=== PATIENT | male | born 1945 | race Caucasian/White ===

== ENCOUNTER → 2024-03-24 09:58 | Outpatient (REF) | payer OTHER, SELFPAY ==
[2024-03-24 11:17] LABS: Hematocrit 40.8 % (39.0-52.0); Mean Corp Hgb Conc. 34.3 g/dL (33.0-37.0); Mean Corpuscular Hgb 30.6 pg (27.0-31.0); Mean Corpuscular Volume 89.3 fL (80.0-94.0); Mean Platelet Volume 10.7 fL (7.4-10.4); Platelet Count 215 10^3/uL (130-400); Red Blood Cell Count 4.57 10^6/uL (4.70-6.10); White Blood Cell Count 7.5 10^3/uL (4.8-10.8)
[2024-03-24 11:47] LABS: ALT (SGPT) 18 U/L (0-50); AST (SGOT) 26 U/L (17-59); Albumin 4.1 g/dl (3.5-5.0); Alkaline Phosphatase 75 U/L (38-126); Blood Urea Nitrogen 21 mg/dl (9-20); Calcium 9.9 mg/dl (8.4-10.2); Carbon Dioxide 29 mmol/L (22-30); Chloride 104 mmol/L (98-107); Glucose 113 mg/dl (70-99); HDL Cholesterol 49 mg/dl; LDL Cholesterol, Calculated 75 mg/dl; Potassium 4.3 mmol/L (3.5-5.1); Sodium 139 mmol/L (135-145); Total Bilirubin 1.3 mg/dl (0.2-1.3); Total Cholesterol 141 mg/dl (50-199); Total Protein 7.3 g/dl (6.3-8.2); Triglyceride 87 mg/dl (10-149); Very Low Density Lipoprotein 17 mg/dl (0-30); eGFR > 60.00
[2024-03-24 11:54] LABS: % Basophils 0.3 % (0-2); % Immature Granulocytes 0.3 % (0-0.5); % Lymphocytes 50.6 % (20.5-51.1); % Monocytes 4.9 % (1.7-9.3); % Neutrophils 43.9 % (42.2-75.2); Absolute Lymphocytes 3.8 10^3/uL (1.2-3.4); Absolute Monocytes 0.4 10^3/uL (0.1-0.6); Absolute Neutrophils 3.3 10^3/uL (1.4-6.5); Nucleated Red Blood Cells % 0 % (-)
[2024-03-24 12:18] LABS: TSH 2.17 uIU/ml (0.47-4.68)
[2024-03-24 13:06] LABS: Glycohemoglobin (HgbA1c) 6.1 % (4.0-5.6)
[2024-03-26 13:59] LABS: PSA Total <0.1 ng/mL (0.0-4.0)
== END ==
LOC: REG 09:58
PROVIDERS: ATTENDING PHYSICIAN Internal Medicine
DX: R73.03 Prediabetes (principal); E78.5 Hyperlipidemia, unspecified; R53.83 Other fatigue; C61 Malignant neoplasm of prostate
CPT/HCPCS: 36415; 80053; 80061; 83036; 84153; 84154; 84443; 85025

== ENCOUNTER 2024-05-19 23:52 | Observation (INO) | payer OTHER, SELFPAY ==
[2024-05-19] VITALS (17 sets, daily range): BP systolic 58–157; BP diastolic 46–108; BMI 23.5
[2024-05-19] MEDS: TRANEXAMIC ACID 1000 MG INH (19:44)
--- NOTE | 2024-05-19 20:02 | ED.GENMED ---
History of Present Illness
General
Chief Complaint: Oral/Mouth Problem
Time Seen by Provider: 05/19/24 18:41
History of Present Illness
History of Present Illness:
79-year-old male with history of A-fib on Eliquis presents to the emergency department for evaluation of oral bleeding, underwent a dental implant procedure at [facility] on May 15, restarted his Eliquis 2 days later. Began
spontaneously bleeding earlier today. Last dose of Eliquis was this morning.
Past History
Past History
ED Past Medical History: Arrthythmia (Atrial fibrillation), Cancer (Prostate cancer), NIDDM and Other (BPH, renal failure)
ED Past Surgical History: Urological
Social History
Tobacco: Non-smoker
Personal:
Living: with family
Review of Systems
Review of Systems
Allergies reviewed?: Yes
All Other Systems: ROS reviewed and negative except as documented in HPI and ROS
Phy Exam
Physical Exam
Physical Exam:
GEN: Well appearing, NAD, WDWN
HEENT: Oral mucosa moist, no scleral icterus. Significant active bleeding from the left upper lingual gingiva, and extensive friable tissue with copious bleeding
Cardiac: Regular rate
Lung: No respiratory distress, no tachypnea
MSK: No gross deformity or injuries
Skin: Good color, no pallor or jaundice, no rashes
Neuro: AO x3, moves all extremities freely
Psych: Calm, cooperative
Course
Orders/Labs/Results
Orders:
Orders
05/19/24 18:55
Tranexamic Acid 1,000 mg INH NOW STA
05/19/24 20:44
Tranexamic Acid 1000 mg/100 ml [Tranexamic Acid] 1,000 mg in 100 ml IV ONCE
05/19/24 20:50
Basic Metabolic Panel Urgent
Complete Blood Count/With Diff Urgent
Abnormal Lab Results
05/19/24
20:50
RBC 3.91 L 10^6/uL
(4.70-6.10)
Hgb 11.9 L g/dL
(13.0-18.0)
Hct 34.5 L %
(39.0-52.0)
Absolute Lymphs (auto) 3.8 H 10^3/uL
(1.2-3.4)
BUN 36 H mg/dl
(9-20)
Glucose 153 H mg/dl
(70-99)
05/19/24 20:50
05/19/24 20:50
Vital Signs
Initial and Last Documented VS:
Initial Vital Signs
Temp
97.7 F
05/19/24 18:38
Last Documented Vital Signs
Temp Pulse Resp BP Pulse Ox
97.7 F 55 18 120/59 96
05/19/24 18:38 05/19/24 21:40 05/19/24 20:07 05/19/24 21:40 05/19/24 21:40
*Critical Care Note
Total Time (30-74mins, 75-104mins- exclusive of procedures): Not Applicable
Update Note
Update Note:
2119: Pt with marked vagal episode resulting in transient systolic BP <40. 1L NS given, myself and RN at bedside during event, pt placed in Trendelenburg. No further gingival bleeding. Gradually improved, no LOC.
2148: Case discussed with pt's dentist Dr Byrd at [place]. He will arrange for outpatient f/u tomorrow or Friday. If further hemorrhaging noted, pt can be transferred to [place] for more urgent eval. CEll # [phone]
At this time, no further bleeding is noted. As pt is anticoagulated and given the profound near syncope/vagal episode with severe hypotension, will admit for observation.
ED Attending Note
-
Portions of this chart may have been created with voice recognition software.� Occasional wrong word or��sound alike� substitutions may have occurred due to the inherent limitations of voice recognition software.
Discharge Plan
Departure
Patient Disposition: Admit
Date of Disposition: 05/19/24
Time of Disposition: 22:02
Admit to: Med/Surg
Presentation/result/management discussed w/ accepting MD/DO: Hospitalist
Discharge Problem:
Hemorrhagic complications of dental implant placement
Prescriptions:
No Action
saw palmetto-zinc picolinate 1 EACH capsule
1 cap PO DAILY
polyethylene glycol 3350 17 GRAMS powder in packet
34 grams PO BID PRN (Reason: constipation) 0RF
aspirin 81 MG tablet,delayed release (DR/EC)
81 mg PO DAILY 0RF
tamsulosin 0.4 MG capsule
0.4 mg PO DAILY Qty: 30 0RF
docusate sodium 100 MG capsule
100 mg PO BID 0RF
bisacodyl 5 MG tablet,delayed release (DR/EC)
10 mg PO DAILY Qty: 30 0RF
metoprolol tartrate 25 MG tablet
25 mg PO BID Qty: 60 0RF
ferrous sulfate [FeroSul] 325 MG tablet
325 mg PO DAILY Qty: 30 0RF
Referrals:
Tor Palmer MD [Family Provider] -
Interventions
Interventions:
*Risk Screen - Suicide Last Done: 05/19/24 18:38
*General Assessment Last Done: 05/19/24 18:38
*Neglect/Abuse Screening Last Done: 05/19/24 18:38
*ED COVID-19 Vaccine History Last Done: 05/19/24 20:07
Discharge Date and Time
Print Language: BANGLADESHI
[2024-05-19] MEDS: TRANEXAMIC ACID 100 IV (20:56)
[2024-05-19 21:01] LABS: % Basophils 0.2 % (0-2); % Immature Granulocytes 0.4 % (0-0.5); % Lymphocytes 36.5 % (20.5-51.1); % Monocytes 4.6 % (1.7-9.3); % Neutrophils 58.3 % (42.2-75.2); Absolute Lymphocytes 3.8 10^3/uL (1.2-3.4); Absolute Monocytes 0.5 10^3/uL (0.1-0.6); Absolute Neutrophils 6.1 10^3/uL (1.4-6.5); Hematocrit 34.5 % (39.0-52.0); Hemoglobin 11.9 g/dL (13.0-18.0); Mean Corp Hgb Conc. 34.5 g/dL (33.0-37.0); Mean Corpuscular Hgb 30.4 pg (27.0-31.0); Mean Corpuscular Volume 88.2 fL (80.0-94.0); Mean Platelet Volume 9.8 fL (7.4-10.4); Nucleated Red Blood Cells % 0 % (-); Platelet Count 222 10^3/uL (130-400); Red Blood Cell Count 3.91 10^6/uL (4.70-6.10); Red Cell Dist. Width 13.7 % (11.5-14.5); White Blood Cell Count 10.4 10^3/uL (4.8-10.8)
[2024-05-19 21:14] LABS: Blood Urea Nitrogen 36 mg/dl (9-20); Calcium 9.1 mg/dl (8.4-10.2); Carbon Dioxide 27 mmol/L (22-30); Chloride 105 mmol/L (98-107); Estimated Creatinine Clearance 75 ml/min; Glucose 153 mg/dl (70-99); Potassium 4.3 mmol/L (3.5-5.1); Sodium 141 mmol/L (135-145); eGFR > 60.00
--- NOTE | 2024-05-19 22:41 | PHANOTE ---
med rec tech(05/19/24)-Unable to interview patient at this time due to oral bleeding. Confirmed Eliquis and Metoprolol Succinate through pharmacy and [facility] records. Unable to confirm OTC meds.
--- NOTE | 2024-05-19 23:16 | HPS.HSE ---
Family Physician
-
Family Physician: Tor Palmer
Chief Complaint
-
Oral bleeding
History of Present Illness
This is a 79-year-old male with a past medical history of proximal atrial fibrillation on anticoagulation with Eliquis who presents to the emergency department with episode of copious amounts of oral bleeding several days after a dental procedure.
Patient reported that he had a dental procedure last week approximately 6 days ago. Prior to the procedure he stopped taking the Eliquis for 2 days. Immediately after the procedure he had some bleed which resolved. He did not take
Eliquis for 1 day. He then started taking the Eliquis. Patient reported approximately 2 days after taking the Eliquis is started bleeding from his mouth.
Last dose of Eliquis was this morning.
On initial arrival in the emergency department he was afebrile blood pressure 120/60 with a pulse of 55 and sat 96% on room air. He had a hemoglobin of 11.9 with a platelet count of 272. BUN was slightly elevated at 36 but the rest of his labs
were within normal limits.
While in ED had a few events.
2119: Pt with marked vagal episode resulting in transient systolic BP <40. 1L NS given, pt placed in Trendelenburg. No further gingival bleeding. Gradually improved, no LOC.
He underwent multiple rounds of attempted hemostasis. He was given tranexamic acid and local epinephrine. On a repeat bleed the patient had local cauterization.
2148: Case discussed with pt's dentist Dr Byrd at [place]. He will arrange for outpatient f/u tomorrow or Friday. If further hemorrhaging noted, pt can be transferred to [place] for more urgent eval. CEll # [phone]
At this time, no further bleeding is noted. As pt is anticoagulated and given the profound near syncope/vagal episode with severe hypotension, will admit for observation.
Medical History
Past Medical History
Past Medical History: Reports Arrhythmia (Atrial Fibrillation)
Past Surgical History: Reports Urological
Social History
Tobacco: Non-smoker
Alcohol: Occasional
Drug: None
Personal:
Living: With Family
Employment: Retired
Family History
Family History: Not pertinent
Allergies / Home Medications
Allergies reflects when Allergies were last updated in [employer].
Home Medications with original date entered in [employer]
Allergy/Medication List:
Allergies
Allergy/AdvReac Type Severity Reaction Status Date / Time
Penicillins Allergy Rash Verified 05/19/24 18:44
Tetanus Vaccines and Toxoid Allergy Unknown Verified 05/19/24 18:44
Home Medications
saw palmetto 450 mg-zinc picolinate 15 mg capsule 1 cap PO DAILY 01/12/16
aspirin 81 mg tablet,delayed release 81 mg PO DAILY 01/16/16
bisacodyl 5 mg tablet,delayed release 10 mg (2 x 5 mg) PO DAILY ##30 01/16/16
docusate sodium 100 mg capsule 100 mg PO BID 01/16/16
ferrous sulfate 325 mg (65 mg iron) tablet (FeroSul) 325 mg PO DAILY #30 tabs 01/16/16
polyethylene glycol 3350 17 gram oral powder packet 34 grams PO BID PRN constipation 01/16/16
apixaban 5 mg tablet (Eliquis) 5 mg PO BID 05/19/24
metoprolol succinate 25 mg tablet,extended release 24 hr 25 mg PO DAILY 05/19/24
Review of Systems
-
History Source: Patient
Constitutional: Reports No Symptoms
EENT: Reports No Symptoms
Respiratory: Reports No Symptoms
Cardiac: Reports No Symptoms
Abdomen/GI: Reports No Symptoms
: Reports No Symptoms
Musculoskeletal: Reports No Symptoms
Skin: Reports No Symptoms
Neurological: Reports No Symptoms
Endocrine: Reports No Symptoms
Hematologic/Lymphatic: Reports No Symptoms
Psych: Reports No Symptoms
Physical Exam
Vital Signs
Vital Signs
Temp Pulse Resp BP Pulse Ox
97.7 F 55 18 120/59 96
05/19/24 18:38 05/19/24 21:40 05/19/24 20:07 05/19/24 21:40 05/19/24 21:40
Physical Exam
General: No Apparent Distress
HEENT: NormoCephalic, Anicteric, Moist mucous membranes and Other (Extensive dental work on the left upper molar area. Hemorrhaging from the site. )
Respiratory: Clear
Cardiac: S1/S2 and Regular Rhythm
Breast: Deferred by me
GI: Soft, Non Tender, Non Distended and Normal Bowel Sounds
Rectal: Deferred by Provider
Genito-urinary: Deferred by me
Musculoskeletal: No Clubbing, No Cyanosis and No Edema
Skin: Warm
Neuro: AO x 3
Hematologic/Lymphatic: No Lymphadenopathy
Psych: Calm
Laboratory Results
-
05/19/24 20:50
05/19/24 20:50
Data Reviewed
-
Lab Data: Labs Reviewed by me
Old Records: Reviewed
Impression/Plan
-
IMPRESSION:
Patient with history of atrial fibrillation who had a complication of a dental procedure following restarting of his anticoagulation. Patient had a procedure approximately 5 days ago and is now bleeding after initiating Eliquis for his atrial
fibrillation. Hemostasis achieved in the emergency department. However patient had a vagal episode with bradycardia and hypotension during attempted hemostasis. His hemoglobin is normal. Of renal function is normal. Patient is currently
hemodynamically stable afebrile and in no acute distress. Hemostasis finally achieved after cauterization in addition to giving additional topical tranexamic acid.
PLAN:
1. Oral bleeding -secondary to anticoagulation following complex dental procedure. Stable. Had a vagal episode in the emergency department and referred for observation.
- observation on telemetry
- NPO including meds for now
- holding eliquis and aspirin, no indication for PCC since non-life threatening bleed and last eliquis was over 12 hours ago. Held off on Type and Cross.
- monitor rate on telemetry
- Case discussed with pt's dentist Dr Byrd at [place]. He will arrange for outpatient f/u tomorrow or Friday. If further hemorrhaging, pt can be transferred to [place] for more urgent eval. CEll # [phone]
At this time, no further bleeding is noted. As pt is anticoagulated and given the profound near syncope/vagal episode with severe hypotension, will admit for observation.
SCD
Full Code
[2024-05-20] VITALS: BP 101/64
[2024-05-20 00:30] VITALS: BP 99/71
[2024-05-20 01:07] VITALS: BP 137/65; BMI 22.3
[2024-05-20 01:22] VITALS: BMI 22.3
--- NOTE | 2024-05-20 02:00 | PTCARENOTE ---
Addendum entered by Shauna Gonzalez RN 05/20/24 05:40:
COIL WINDER HAND, Georgie, notified.
Original Note:
Pt received from Ed at 0100. Pt seemed slightly agitated with transporter, complained of slight lightheadedness, AAOX3, VVS, and able to pivot into bed. Pt receptive to room and call garza. Pt informed of importance to use call garza before getting up
and pt relayed understanding. Pt bed in lowest position and call garza within reach. RN got pt ordered fluids ready, however, pt states they are nervous and doesn't want to receive fluids as he doesn't feel safe taking it. Pt reassured of his safety
and educated on importance for scheduled fluids and pt agreed to receive 1 hour of fluids. 1 hour of fluids given (66mls) and pt was disconnected from fluids (D5/0.45%NaCl). Will continue with current plan of care.
[2024-05-20] MEDS: D5/0.45%NACL 1000 IV (02:03)
[2024-05-20 03:54] VITALS: BP 132/70
[2024-05-20 07:30] VITALS: BP 132/70
[2024-05-20 09:02] LABS: Hematocrit 32.7 % (39.0-52.0); Hemoglobin 11.7 g/dL (13.0-18.0); Mean Corp Hgb Conc. 35.8 g/dL (33.0-37.0); Mean Corpuscular Hgb 32.8 pg (27.0-31.0); Mean Corpuscular Volume 91.6 fL (80.0-94.0); Mean Platelet Volume 10.1 fL (7.4-10.4); Platelet Count 246 10^3/uL (130-400); Red Blood Cell Count 3.57 10^6/uL (4.70-6.10); Red Cell Dist. Width 13.7 % (11.5-14.5); White Blood Cell Count 11.3 10^3/uL (4.8-10.8)
[2024-05-20 09:07] LABS: INR 1.31; PT 16.3 Sec (11.4-14.6)
--- NOTE | 2024-05-20 10:07 | W.PN.HOSP.TC ---
Today's Communication/Plan
-
dc home
Assessment / Plan
Assessment / Plan
NAD, resting comfortably in bed
Scleral anicteric
No further bleeding in the mouth
Moist mucous membranes
No JVD
CTA bilateral
Normal S1-S2 no murmurs
Soft nontender nondistended bowel sounds active
No peripheral pitting edema
Moves extremities spontaneously
AAOx3
Oral bleeding resolved
hgb stable
hemodynamic stable
he would like to go home
he needs to follow up with outpatient dentist Dr. Byrd
hold eliquis
discuss resuming with community facilitator and dentist but ideally should see dentist first
paroxysmal atrial fibrilaltion, in sinus, on bb. hold ac
brenana contineu ferrous sulfate
take vee jones, have told him to hold taking this as there is an assoiciated bleeding risk.
dc home
Anticipated Discharge: Today
Subjective/Interval History
-
Date of Service: May 20, 2024
seen and examined
no further mouth bleeding
no acute complaints
no dizziness, chest pain, sob
states he understands that he should hold off on taking his eliquis until he sees his dentist
he understands that he needs to see Dr Byrd at [place] today or Friday.
Objective Data
-
Labs:
Laboratory Results
05/20/24
08:04
WBC 11.3 H
Hgb 11.7 L
Hct 32.7 L
Plt Count 246
PT 16.3 H
INR 1.31
Vital Signs:
Vital Signs
Temp Pulse Resp BP Pulse Ox
99.0 F 68 18 132/70 96
05/20/24 07:30 05/20/24 07:30 05/20/24 07:30 05/20/24 07:30 05/20/24 07:30
I&O
05/19/24 05/20/24 05/21/24
06:59 06:59 06:59
Output Total 300 / 300
Balance -300 / -300
--- NOTE | 2024-05-20 10:30 | W.DCSUMMARY ---
Discharge Summary
Discharge Data
Date of Admission: 05/19/24
Date of Discharge: 05/20/24
-
Pending Results: No
Hospital Course
Presented with oral bleeding that occured after dental procedure at [place] approximately 5days prior to presenting to [facility]. Bleeding was stopped with epinephrine, tranexamic acid and eventually required cautery. Blood counts on
discharge stable at 11.7. No indication for blood transfusion. Blood pressure stable as well.
[facility] was called in the ER and recommended outpatient follow up today (05/20) or Friday (05/21) with Dr. Byrd. If hemorrhaging then he should be transferred to [place] for more urgent eval and to call [phone].
Continue oral care recommendations per Dental medicine recommendation that were provided after surgical intervention 5days./
Discharge Plan
-
Patient Disposition: Home (Routine Discharge)
Discharge Diagnosis/Procedures: oral bleeding
Diet: As tolerated
Activity: As tolerated
Driving Restrictions: As prior to admission
Activity Restrictions/Additional Instructions:
Presented with oral bleeding that occured after dental procedure at [place] approximately 5days prior to presenting to [facility]. Bleeding was stopped with epinephrine, tranexamic acid and eventually required cautery. Blood counts on
discharge stable at 11.7. No indication for blood transfusion. Blood pressure stable as well.
[facility] was called in the ER and recommended outpatient follow up today (05/20) or Friday (05/21) with Dr. Byrd. If hemorrhaging then he should be transferred to [place] for more urgent eval and to call [phone].
Continue oral care recommendations per Dental medicine recommendation that were provided after surgical intervention 5days./
Referrals:
Tor Palmer MD [Family Provider] -
Additional Discharge Medication Instructions: Hold take Aspirin and Eliquis
-Resume per Dental medicine and Cardiology The resume date provided, do not follow this, and follow what your roving marker and dental medicine provider recommend.
Hold taking saw palmetto until bleeding risk/affects on platelets have been discussed with outpatient cardiology
Prescriptions:
Continued
polyethylene glycol 3350 17 GRAMS powder in packet
34 grams PO BID PRN (Reason: constipation) 0RF
docusate sodium 100 MG capsule
100 mg PO BID 0RF
bisacodyl 5 MG tablet,delayed release (DR/EC)
10 mg PO DAILY Qty: 30 0RF
ferrous sulfate [FeroSul] 325 MG tablet
325 mg PO DAILY Qty: 30 0RF
metoprolol succinate 25 mg Tablet Extended Release 24 Hr
25 mg PO DAILY
Held
saw palmetto-zinc picolinate 1 EACH capsule
1 cap PO DAILY
Hold Instructions: Resume on 06/14/24. Saw [place] can affect platelets. Would hold take this indefinitely as this can increase bleeding risk
aspirin 81 MG tablet,delayed release (DR/EC)
81 mg PO DAILY 0RF
Hold Instructions: Resume on 05/24/24. Resume per Dental medicine and Cardiology The resume date provided, do not follow this, and follow what your roving marker and dental medicine provider recommend.
Eliquis 5 mg Tablet
5 mg PO BID
Hold Instructions: Resume on 05/24/24. Resume per Dental medicine and cardiology recommendations The resume date provided, do not follow this, and follow what your roving marker and dental medicine provider recommend.
Discharge Orders:
Discharge Patient (As Directed); Ordered 05/20/24
Ordered By: Sim Joel
Discharge Date and Time
Print Language: TUVALUAN
--- NOTE | 2024-05-20 10:58 | CM ---
CM reviewed chart, patient for discharge today. Patient seen bedside, requesting to speak with Hospitalist, did not want to complete assessment with CM until speaking with Hospitalist, TT sent to Doctor. CM returned, patient agreeable to assessment
questions. Per patient, resides with his in a multiple story home, nine steps to enter, no DME, VN, or SNF history. Patient confirms PCP Tor Palmer, pharmacy [facility] in [place], confirms prescription coverage. Patient denies
insecurities at home. CM reviewed ZAMORA with patient, refused to sign, provided with copy, placed in patients chart. Patient reports the Doctor will be providing transportation home. Patient reports his does not drive. CM relayed to nurse. CM
placed call to patients , Jass, Jass will see if neighbor can provide transportation home for patient, will call CM back. CM will continue to follow for all discharge planning needs.
Plan; home no needs, awaiting confirmation of transportation.
== END 2024-05-20 12:31 | disposition home or self-care (01) ==
LOC: 4 WEST ACU 23:52
PROVIDERS: Physician Assistant; ADMITTING PHYSICIAN Internal Medicine; ATTENDING PHYSICIAN Hospitalist; EMERGENCY PHYSICIAN Emergency Medicine; FAMILY PHYSICIAN Internal Medicine
DX: T88.8XXA Other specified complications of surgical and medical care, not elsewhere classified, initial encounter (principal); Y83.8 Other surgical procedures as the cause of abnormal reaction of the patient, or of later complication, without mention of misadventure at the time of the procedure; Y92.9 Unspecified place or not applicable; K13.79 Other lesions of oral mucosa; I48.91 Unspecified atrial fibrillation; E11.9 Type 2 diabetes mellitus without complications; R58 Hemorrhage, not elsewhere classified; N40.0 Benign prostatic hyperplasia without lower urinary tract symptoms; Z79.82 Long term (current) use of aspirin; Z79.01 Long term (current) use of anticoagulants; Z85.46 Personal history of malignant neoplasm of prostate; I95.9 Hypotension, unspecified; R55 Syncope and collapse; Z88.7 Allergy status to serum and vaccine; Z88.0 Allergy status to penicillin
CPT/HCPCS: 80048; 85025; 85027; 85610; 94640; 96374; 99284; G0378

== ENCOUNTER 2024-05-22 12:55 | Emergency (ER) | payer OTHER, SELFPAY ==
[2024-05-22] VITALS (7 sets, daily range): BP systolic 95–143; BP diastolic 59–78
[2024-05-22 14:10] LABS: INR 1.21; PT 15.1 Sec (11.4-14.6)
[2024-05-22 14:14] LABS: ALT (SGPT) 22 U/L (0-50); AST (SGOT) 28 U/L (17-59); Albumin 4.2 g/dl (3.5-5.0); Alkaline Phosphatase 64 U/L (38-126); Blood Urea Nitrogen 42 mg/dl (9-20); Calcium 9.6 mg/dl (8.4-10.2); Carbon Dioxide 27 mmol/L (22-30); Chloride 107 mmol/L (98-107); Glucose 151 mg/dl (70-99); Potassium 4.2 mmol/L (3.5-5.1); Sodium 145 mmol/L (135-145); Total Bilirubin 0.8 mg/dl (0.2-1.3); Total Protein 7.4 g/dl (6.3-8.2); eGFR > 60.00
[2024-05-22 14:16] LABS: % Basophils 0.2 % (0-2); % Immature Granulocytes 0.2 % (0-0.5); % Lymphocytes 50.3 % (20.5-51.1); % Monocytes 5.3 % (1.7-9.3); Absolute Lymphocytes 6.2 10^3/uL (1.2-3.4); Absolute Monocytes 0.7 10^3/uL (0.1-0.6); Absolute Neutrophils 5.4 10^3/uL (1.4-6.5); Hematocrit 34.5 % (39.0-52.0); Hemoglobin 11.8 g/dL (13.0-18.0); Mean Corp Hgb Conc. 34.2 g/dL (33.0-37.0); Mean Corpuscular Hgb 30.6 pg (27.0-31.0); Mean Corpuscular Volume 89.4 fL (80.0-94.0); Mean Platelet Volume 9.8 fL (7.4-10.4); Nucleated Red Blood Cells % 0 % (-); Platelet Count 316 10^3/uL (130-400); Red Blood Cell Count 3.86 10^6/uL (4.70-6.10); Red Cell Dist. Width 13.9 % (11.5-14.5); White Blood Cell Count 12.3 10^3/uL (4.8-10.8)
--- NOTE | 2024-05-22 14:42 | ED.GENMED ---
History of Present Illness
General
Chief Complaint: Oral/Mouth Problem
Source: patient
Time Seen by Provider: 05/22/24 14:10
History of Present Illness
History of Present Illness:
79-year-old male presents to the emergency room due to bleeding from location of dental surgery. Patient had dental surgery performed on May 18 at [facility]. Patient does take Eliquis. He held Eliquis for the procedure but was
instructed to resume it. Once he resumed the Eliquis the bleeding started. Patient was seen here in the emergency room on May 19. Bleeding was difficult to control but was ultimately controlled with a combination of topical thrombin and IV
TXA. Patient was hospitalized because he had a significant vasovagal event. He did not bleed while in the hospital and so was discharged home. He followed up with his dentist yesterday at [facility] who did some further work on the area. He was told
he could resume his Eliquis yesterday. He took a dose last night. The bleeding began during the night.
Past History
Past History
ED Past Medical History: Arrthythmia (Atrial fibrillation), Cancer (Prostate cancer), NIDDM and Other (BPH, renal failure)
ED Past Surgical History: Urological
Social History
Tobacco: Non-smoker
Personal:
Living: with family
Phy Exam
Physical Exam
Physical Exam:
General: Awake, Alert, Oriented X3. Pale, mildly diaphoretic
Vitals: Normotensive, normal heart rate
Head: Atraumatic
Eyes: Pupils equal, EOMI
Mouth: Posterior to the right upper canine and incisors exists a structure which appears to be some sort of dental cement. Posterior to this structure there is a constant rapid dripping of blood. Area is quite tender to palpation.
Throat: Airway intact, no exudates
Neck: Trachea midline
Lungs: Clear and equal b/l
Heart: Regular rate, no murmurs
Neuro: Nonfocal
Skin: Warm, dry, no rash
Extremities: pulses equal b/l, no edema
Course
Orders/Labs/Results
Orders:
Orders
05/22/24 13:50
CMP [Comprehensive Metabolic Panel] Urgent
Complete Blood Count/With Diff Urgent
PT/INR [Prothrombin Time] Urgent
05/22/24 14:33
Thrombin (Recombinant) [Recothrom] 5,000 units TOPICAL ONCE ONE
Tranexamic Acid 1000 mg/100 ml [Tranexamic Acid] 1,000 mg in 100 ml IV ONCE
05/22/24 14:45
Thrombin (Recombinant) [Recothrom] 5,000 units TOPICAL ONCE ONE
Abnormal Lab Results
05/22/24
13:50
WBC 12.3 H 10^3/uL
(4.8-10.8)
RBC 3.86 L 10^6/uL
(4.70-6.10)
Hgb 11.8 L g/dL
(13.0-18.0)
Hct 34.5 L %
(39.0-52.0)
Absolute Lymphs (auto) 6.2 H 10^3/uL
(1.2-3.4)
Absolute Monos (auto) 0.7 H 10^3/uL
(0.1-0.6)
PT 15.1 H Sec
(11.4-14.6)
BUN 42 H mg/dl
(9-20)
Glucose 151 H mg/dl
(70-99)
05/22/24 13:50
05/22/24 13:50
Vital Signs
Initial and Last Documented VS:
Initial Vital Signs
Temp Pulse Resp BP Pulse Ox
98.2 F 77 16 143/78 98
05/22/24 12:59 05/22/24 12:59 05/22/24 12:59 05/22/24 12:59 05/22/24 12:59
Last Documented Vital Signs
Temp Pulse Resp BP Pulse Ox
98.2 F 73 18 102/68 96
05/22/24 12:59 05/22/24 20:30 05/22/24 20:30 05/22/24 20:00 05/22/24 18:24
MDM/Problems Addressed
Differential Diagnosis Includes:
Postoperative venous bleeding, postoperative arterial bleeding,
MDM/Problems Addressed:
Patient presents with postoperative bleeding. This actively appears to be under the dental cement. I initially attempted to control bleeding by spraying atomized epinephrine to the area and then applying direct pressure. This was unsuccessful. I
next applied Surgicel to the area and held pressure without improvement. Next I obtained topical thrombin. This was sprayed directly at the junction of the dental cement and the palate and also placed on, fall and I applied direct pressure to the
area. This seemed to result in cessation of bleeding. However after about 20 minutes the bleeding returned. Clot began accumulating around the dental cement. In an attempt to remove the clot the dental cement was dislodged. At this point I was
able to identify the surgical site in the area of bleeding. I again applied topical epinephrine and topical thrombin. I then again with a cotton-tipped applicator with thrombin and applied pressure to the area. After about 10 minutes of pressure
bleeding was controlled. Patient was observed for several hours without the return of bleeding. I did discuss the patient's presentation with [facility], Dr. Tarik Wang
([phone]) who was perplexed as to why the patient would continue bleeding so far at from the procedure. They did see the patient in the office yesterday and felt everything looked as it should. The dental cement was placed over the area as a
way of protecting it. He had no additional recommendations or interventions. Patient's bleeding did seem to coincide with his resumption of Eliquis. The patient is on the business analysis analyst here and he has been in normal sinus rhythm. She is also
the patient has. In-N-Out of A-fib but given the fact he is in sinus rhythm now I feel it is reasonable to continue to hold Eliquis until he can follow-up with [facility] on Friday. Patient states he is personal friends with his shaper operator
and he can call him tomorrow. Suggested if the patient has resumption of bleeding he should certainly return to an emergency room. May make sense for him to go to [facility] however it does not seem like this is feasible for him as he does not have
transportation there. Therefore the patient does return here it should be noted that topical thrombin was quite useful at controlling bleeding. Patient also received a dose of IV TXA.
*Pulse Oximetry
Patient hypoxic: no
*Critical Care Note
Total Time (30-74mins, 75-104mins- exclusive of procedures): Not Applicable
ED Attending Note
-
Portions of this chart may have been created with voice recognition software.� Occasional wrong word or��sound alike� substitutions may have occurred due to the inherent limitations of voice recognition software.
Discharge Plan
Departure
Patient Disposition: Home (Routine Discharge)
Date of Disposition: 05/22/24
Time of Disposition: 20:36
Patient with high blood pressure during this ER visit?: No
Condition: Good
Discharge Problem:
Hemorrhagic complications of dental implant placement
Instructions: Dental Implants (DC)
Prescriptions:
No Action
saw palmetto-zinc picolinate 1 EACH capsule
1 cap PO DAILY
polyethylene glycol 3350 17 GRAMS powder in packet
34 grams PO BID PRN (Reason: constipation) 0RF
aspirin 81 MG tablet,delayed release (DR/EC)
81 mg PO DAILY 0RF
docusate sodium 100 MG capsule
100 mg PO BID 0RF
bisacodyl 5 MG tablet,delayed release (DR/EC)
10 mg PO DAILY Qty: 30 0RF
ferrous sulfate [FeroSul] 325 MG tablet
325 mg PO DAILY Qty: 30 0RF
metoprolol succinate 25 mg Tablet Extended Release 24 Hr
25 mg PO DAILY
Eliquis 5 mg Tablet
5 mg PO BID
Referrals:
Clarisa Triplett DMD [Active] -
Tor Palmer MD [Family Provider] -
Activity Restrictions/Additional Instructions:
Please hold your Eliquis until you speak to your shaper operator and dentist on Friday. Do not drink with a straw or spoon but, rather, gently pour soup or Ensure into your mouth is small volumes. Return to the ER if the bleeding comes back and we
will get it to stop again.
Interventions
Interventions:
*Risk Screen - Suicide Last Done: 05/22/24 13:01
*General Assessment Last Done: 05/22/24 21:54
*Neglect/Abuse Screening Last Done: 05/22/24 13:01
*Nursing Disposition Last Done: 05/22/24 21:54
Discharge Date and Time
Discharge Date/Time: 05/22/24 21:57
Print Language: BAHRAINI
[2024-05-22] MEDS: TRANEXAMIC ACID 100 IV (14:52)
[2024-05-22] MEDS: RECOTHROM 5000 UNITS TOPICAL (15:18)
== END 2024-05-22 21:57 | disposition home or self-care (01) ==
LOC: EMR 12:55
PROVIDERS: Emergency Medicine; EMERGENCY PHYSICIAN Emergency Medicine; FAMILY PHYSICIAN Internal Medicine
DX: M27.69 Other endosseous dental implant failure (principal); L76.22 Postprocedural hemorrhage of skin and subcutaneous tissue following other procedure; I48.91 Unspecified atrial fibrillation; Z79.01 Long term (current) use of anticoagulants
CPT/HCPCS: 99284; 96374; 80053; 85025; 85610

== ENCOUNTER → 2024-12-06 14:16 | Outpatient (REF) | payer OTHER, SELFPAY | LOC: RAD 14:16 | PROVIDERS: ATTENDING PHYSICIAN Internal Medicine | DX: M79.604 Pain in right leg (principal) | CPT/HCPCS: 73502; 73552; 73564 ==

== ENCOUNTER → 2025-03-28 13:08 | Outpatient (REF) | payer OTHER, SELFPAY ==
[2025-03-28 14:32] LABS: Hematocrit 39.2 % (39.0-52.0); Hemoglobin 14.2 g/dL (13.0-18.0); Mean Corp Hgb Conc. 36.2 g/dL (33.0-37.0); Mean Corpuscular Volume 92.0 fL (80.0-94.0); Platelet Count 216 10^3/uL (130-400); Red Cell Dist. Width 14.0 % (11.5-14.5)
[2025-03-28 14:58] LABS: ALT (SGPT) 12 U/L (0-50); AST (SGOT) 21 U/L (17-59); Albumin 4.4 g/dl (3.5-5.0); Alkaline Phosphatase 81 U/L (38-126); Blood Urea Nitrogen 19 mg/dl (9-20); Calcium 9.4 mg/dl (8.4-10.2); Carbon Dioxide 26 mmol/L (22-30); Chloride 107 mmol/L (98-107); Glucose 132 mg/dl (70-99); Potassium 4.3 mmol/L (3.5-5.1); Sodium 140 mmol/L (135-145); Total Protein 8.0 g/dl (6.3-8.2); eGFR > 60.00
[2025-03-28 16:11] LABS: Nucleated Red Blood Cells % 0 % (-)
[2025-03-29 08:12] LABS: Glycohemoglobin (HgbA1c) 6.2 % (4.0-5.6)
== END ==
LOC: REG 13:08
PROVIDERS: ATTENDING PHYSICIAN Hospitalist
DX: Z85.46 Personal history of malignant neoplasm of prostate (principal); Z00.00 Encounter for general adult medical examination without abnormal findings; R73.03 Prediabetes
CPT/HCPCS: 36415; 80053; 83036; 84153; 84154; 85025

== ENCOUNTER → 2025-07-22 14:14 | Outpatient (REF) | payer OTHER, SELFPAY | LOC: RCS 14:14 | PROVIDERS: ATTENDING PHYSICIAN Internal Medicine Cardiovascular Disease; FAMILY PHYSICIAN Hospitalist | DX: R07.2 Precordial pain (principal) | CPT/HCPCS: 93017 ==

== ENCOUNTER 2025-08-02 06:47 | Day surgery (SDC) | payer OTHER, SELFPAY ==
--- NOTE | 2025-08-01 15:41 | PTCARENOTE ---
Patients ECG > 6 months- reviewed by Dr. Montgomery- no additional interventions required.
--- NOTE | 2025-08-02 11:30 | W.SUR.PREOP ---
Pre-Operative Surgical Note
-
I have examined this patient prior to the performance of the scheduled procedure.
The patient's condition is unchanged from the time of the current History and
Physical and the patient is able to undergo the scheduled procedure.
--- NOTE | 2025-08-02 11:30 | HP.FOC2 ---
Focused History & Physical
Chief Complaint
HPI:
Chief Complaint: Right inguinal hernia
HPI / Indication for Planned Procedure: This is an 80-year-old male who presents with a right inguinal hernia. Will plan for an open right inguinal repair with mesh.
Relevant Past Medical History: Negative
Relevant Social History: Negative
Relevant Family History: Negative
Relevant Past Surgical History: Positive for (Prostatectomy, incisional hernia repair with mesh.)
Review of Systems
Review of Pertinent Systems: All Systems Negative
Medication
See Medication form for detailed medications: Yes
Medication List (including Herbals & OTC):
apixaban 5 mg tablet (Eliquis) 5 mg PO BID Blood Clot Prevention/Tx 05/19/24. Eliquis was held 48 hours prior to surgery.
Held on 05/20/24. Instructions: Resume on 05/24/24. Resume per Dental medicine and cardiology recommendations The resume date provided, do not follow this, and follow what your general clerk and dental medicine provider recommend.
metoprolol succinate 25 mg tablet,extended release 24 hr 25 mg PO DAILY 05/19/24
acetaminophen 325 mg tablet (Tylenol) 650 mg PO QID PRN pain 07/29/25
docusate sodium 100 mg capsule 50 mg PO PRN PRN constipation 07/29/25
Medications Reviewed: Yes
Allergies and Reactions
Patient has Allergies: Yes
Noted Allergies and Reactions:
Allergy/AdvReac Type Severity Reaction Status Date / Time
Penicillins Allergy Rash Verified 07/29/25 14:41
Tetanus Vaccines and Toxoid Allergy Unknown Verified 07/29/25 14:41
Pertinent Physical Exam
All Other Systems: Negative
Head/Neck: Normal
Diagnosis / Assessment
This is an 80-year-old male who presents with a right inguinal hernia.
Plan / Procedure
Will plan for an open right inguinal repair with mesh.
Anesthesia/Sedation to be done by Anesthesia Provider: Yes
[2025-08-02 12:09] VITALS: BP 132/89
[2025-08-02] MEDS: NORMOSOL-R/PLASMALYTE-A 1000 IV (12:20)
[2025-08-02] MEDS: TYLENOL 1000 MG PO (12:22)
[2025-08-02 12:29] VITALS: BMI 24.0
[2025-08-02 14:00] VITALS: BP 106/68
--- NOTE | 2025-08-02 14:01 | W.IMMPOSTOP ---
Surgical Immed Post Op Note
-
Primary Surgeon: Sascha Zurita MD
Assisting Surgeon: None
Pre-op Diagnosis: Right inguinal hernia
Post-op Diagnosis: Same
Procedure Performed: Open right inguinal hernia repair with mesh
Anesthesia Type: General
Specimen / Cultures: None
Estimated Blood Loss: 5 cc
Complications: None
Operative Findings: Large right indirect inguinal hernia reduced on induction. Small cord lipoma resected. No direct component. The space was reinforced with a 10 x 15 cm Bard soft uncoated polypropylene mesh and the hernia was repaired in the
standard Omega fashion.
--- NOTE | 2025-08-02 14:06 | OR.RPT ---
Operative Report
Operative Report
Patient Name: Jose De Jesus Cordoba
: 1945
Date of Operation: 08/02/2025
Preoperative Diagnosis: Right inguinal hernia
Postoperative Diagnosis: Right inguinal hernia, spermatic cord lipoma
Procedure(s):
1. Open right inguinal hernia repair with mesh (53554)
2. Excision of lesion of a spermatic cord lipoma (92480�[id number])
Surgeon(s):
Dr. Zurita
Dental Cream Maker(s):
LETTY Abraham
Anesthesia: MAC
Estimated Blood Loss: 5 cc
Urine Output: None
Drains/Lines/Implants: 15x7.5cm Bard Soft uncoated polypropylene Mesh cut to size
Specimen / Cultures:
None
Indication for surgery: The patient has a history of groin pain and some asymmetry noted on exam and was found to have a large right inguinal Hernia. Following review of therapeutic options they elected to undergo an open repair
Operative Findings: Large right indirect inguinal hernia without contents. High ligation performed. No direct component. Small spermatic cord lipoma isolated and high ligation performed. The ilioinguinal and iliohypogastric nerves were
identified and preserved. The floor was reconstructed with a 15 x 7.5 cm Bard soft uncoated polypropylene mesh in the standard fashion.
Details of the operation:
After induction of general anesthesia, the patient was clipped, prepped and draped in the supine position. A team timeout was performed confirming administration of DVT prophylaxis, IV antibiotics and SCDs. The ASIS and pubic tubercle were marked
and an incision was chosen along the course of a skin line. The skin was anesthetized with Lidocaine. An incision was made through the skin line and dissection carried down through subcutaneous tissue and Harish's fascia. The superficial epigastric
vein was identified and ligated. A Small Trey wound retractor was used to provide exposure. The external oblique fibers were then divided in the direction of travel. The ilioinguinal nerve was identified and preserved. Dissection was carried down
to the floor, which revealed the following:
At the site of the indirect (internal) ring, there was a a large hernia sac that was dissected and reduced off the cord structures. I high ligation was performed with a 2-0 Vicryl suture.
A cord lipoma was also identified and resected
The direct space, floor of the canal revealed no weakness.
The floor of the canal was then reconstructed by placing a 15 x 7.5 cm Bard soft uncoated polypropylene mesh trimmed to size and secured it in place with interrupted 0-PDS sutures medially at the pubic tubercle, inferiorly along the inguinal
ligament, laterally/superiorly in the conjoint tendon. A slit was made in the mesh just wide enough to accommodate the cord this was also reapproximated with the PDS suture. Care was taken not to injure or entrap any nerves. The external oblique
fibers were then closed using a running 2-0 Vicryl suture. Harish's fascia was then closed with interrupted 3-0 Vicryl suture. The skin was closed in layers with interrupted 3-0 vicryl deep dermals followed by a running subcuticular 4-0 Monocryl
followed by dermabond. The patient returned to the Recovery Room in stable condition. Sponge and instrument counts were correct.
I was the attending physician and performed the procedure with assistance of the PA above. Their assistance was required due to the complexity of the procedure. During the procedure they assisted with retraction, resection, and closure of the
wound. I was present for all portions of the case, excluding skin closure.
Sascha Zurita MD
[2025-08-02 14:15] VITALS: BP 112/71
== END 2025-08-02 14:55 | disposition home or self-care (01) ==
LOC: SDS 06:47
PROVIDERS: ATTENDING PHYSICIAN Surgery; FAMILY PHYSICIAN Hospitalist
DX: K40.90 Unilateral inguinal hernia, without obstruction or gangrene, not specified as recurrent (principal)
CPT/HCPCS: 49505